=== PATIENT | female | born 1945 ===

== ENCOUNTER 2024-08-23 05:33 | Emergency (ER) | payer SELFPAY ==
[2024-08-23 05:42] VITALS: BP 181/83; PULSE 88; RESP 24; TEMP 98.1; BMI 27.3
[2024-08-23] MEDS ORDERED: ACETAMINOPHEN INJECTION 100 ML ONE (06:36)
[2024-08-23] MEDS ORDERED: FAMOTIDINE 20 MG/50 ML IVPB 20 MG/50 ML MG IVPB ONE (06:36)
[2024-08-23] MEDS: ACETAMINOPHEN 1000 MG/100 ML BAG IVPB ONE (06:59)
[2024-08-23] MEDS: SODIUM CHLORIDE 1,000 ML IV STA (06:59)
[2024-08-23] MEDS: FAMOTIDINE 20 MG/50 ML IVPB 20 MG/50 ML MG IVPB ONE (07:00)
[2024-08-23 07:29] LABS: HEMATOCRIT 35.1 % (32.4-45.2); HEMOGLOBIN 11.4 GM/dL (10.7-15.3); MCH 26.2 pg (25.7-33.7); MCHC 32.6 g/dl (32.0-36.0); MEAN CELL VOLUME 80.2 fl (80-96); MEAN PLT VOLUME 7.4 fl (7.5-11.1); PLATELET COUNT 359 10^3/uL (134-434); RBC 4.37 M/mm3 (3.60-5.2); RDW 15.5 % (11.6-15.6); WHITE BLOOD COUNT 8.9 K/mm3 (4.0-10.0)
[2024-08-23 07:36] LABS: POTASSIUM 3.5 mmol/L (3.5-5.1)
[2024-08-23 07:39] LABS: CALCIUM 8.9 mg/dL (8.5-10.1)
[2024-08-23 07:40] LABS: ALBUMIN 3.1 g/dl (3.4-5.0); BLOOD UREA NITROGEN 13.9 mg/dL (7-18); MAGNESIUM 2.1 mg/dL (1.8-2.4)
[2024-08-23 07:42] LABS: CREATININE 0.8 mg/dL (0.55-1.3)
[2024-08-23 07:44] LABS: BILIRUBIN,TOTAL 0.4 mg/dL (0.2-1); TOT PROT 7.9 g/dl (6.4-8.2)
[2024-08-23 08:47] LABS: INR 0.97 (0.83-1.09); PROTHROMBIN TIME (PATIENT) 11.2 SEC (9.7-13.0)
[2024-08-23 08:50] LABS: ACTIVATED PTT 38.7 SECONDS (25.2-36.5)
[2024-08-23 09:04] LABS: ANISOCYTOSIS 0; MACROCYTOSIS 0
[2024-08-23 09:28] LABS: EPI CELLS 20 /uL (0-25.1); HYALINE CASTS 1 /uL (0-3.1); URINE APPEARANCE CLEAR; URINE BACTERIA 72 /uL (0-1359); URINE BILIRUBIN NEGATIVE (NEGATIVE); URINE COLOR YELLOW; URINE GLUCOSE (UA) NEGATIVE (NEGATIVE); URINE KETONE 1+ (NEGATIVE); URINE LEUK ESTERASE NEGATIVE (NEGATIVE); URINE NITRITE NEGATIVE (NEGATIVE); URINE PROTEIN 1+ (NEGATIVE); URINE RBC 22 /uL (0-23.9); URINE UROBILINOGEN 0.2 mg/dL (0.2-1.0); URINE WBC 6 /uL (0-25.8)
[2024-08-23] MEDS ORDERED: ASPIRIN 81 MG CHEWABLE TABLETS ONE (11:26)
[2024-08-23] MEDS: ASPIRIN 81 MG CHEWABLE TABLETS PO ONE (11:29)
== END 2024-08-23 14:38 | disposition left against medical advice (07) ==
LOC: JER 05:33
PROC: 3E033GC Introduction of Other Therapeutic Substance into Peripheral Vein, Percutaneous Approach (ICD-10-PCS; principal; 2024-08-23)
PROC: 3E033NZ Introduction of Analgesics, Hypnotics, Sedatives into Peripheral Vein, Percutaneous Approach (ICD-10-PCS; 2024-08-23)
DX: J10.1 Influenza due to other identified influenza virus with other respiratory manifestations (principal); R79.89 Other specified abnormal findings of blood chemistry; R11.2 Nausea with vomiting, unspecified; R10.84 Generalized abdominal pain; Z20.822 Contact with and (suspected) exposure to COVID-19
CPT/HCPCS: 0241U-QW; 36415; 74177-TC; 76705-TC; 80053; 81003; 83605; 83690; 83735; 84484; 85025; 85610; 85730; 87086; 87186; 93005; 93010; 99285-25; J0131; Q9967